=== PATIENT | female | born 1980 | race Caucasian/White ===

== ENCOUNTER 2017-01-26 16:45 | Inpatient (IN) | payer OTHER ==
[2017-01-26] MEDS ORDERED: DEXTROSE 5%-LACTATED RINGERS 1,000 ML IV ONE (18:00)
[2017-01-26] MEDS ORDERED: CITRIC ACID/SODIUM CITRATE 30 ML UNIT-DOSE CUP PO ONE ×2 (19:39)
[2017-01-26] MEDS ORDERED: ELECTROLYTE-148 SOLN 1,000 ML IV SCH (19:45)
--- NOTE | 2017-01-26 19:46 | HP ---
Past Medical History - Admission Chief Complaint: Previous in labor History of Present Illness: 36 yo @ 40 weeks gestation, with one previous is Pre op for repeat . History Source: Patient Limitations to Obtaining History: No Limitations - Past Medical History ...: 4 ...Para: 3 ...Term: 3 ...: 0 ...Spon : 0 ...Induced : 0 ...EDC by Sono: 01/23/17 - Past Surgical History Past Surgical History: Yes: Hx Myomectomy: No Hx Transabdominal Cerclage: No - Smoking History Have you smoked in the past 12 months: No - Alcohol/Substance Use Hx Alcohol Use: No History of Substance Use: reports: None - Social History Usual Living Arrangement: Yes: With Spouse History of Recent Travel: No Home Medications - Allergies Allergies/Adverse Reactions: Allergies Allergy/AdvReac Type Severity Reaction Status Date / Time No Known Allergies Allergy Verified 01/26/17 17:44 - Home Medications Home Medications: Ambulatory Orders Vit/Iron Fumarate/FA [ Tablet] 1 tablet PO DAILY 11/03/16 Family Disease History - Family Disease History Family History: Unremarkable Review of Systems - Review of Systems Constitutional: reports: No Symptoms Eyes: reports: No Symptoms HENT: reports: No Symptoms Neck: reports: No Symptoms Cardiovascular: reports: No Symptoms Respiratory: reports: No Symptoms Gastrointestinal: reports: No Symptoms Genitourinary: reports: Pain Breasts: reports: No Symptoms Reported Musculoskeletal: reports: No Symptoms Integumentary: reports: No Symptoms Neurological: reports: No Symptoms Endocrine: reports: No Symptoms Hematology/Lymphatic: reports: No Symptoms Psychiatric: reports: No Symptoms Pain Intensity: 3 Physical Exam - Maternity Vital Signs: Vital Signs Temperature 97.9 F 01/26/17 17:15 Pulse Rate 88 01/26/17 17:15 Respiratory Rate 18 01/26/17 17:15 Blood Pressure 112/70 01/26/17 17:15 O2 Sat by Pulse Oximetry (%) Constitutional: Yes: Well Nourished Eyes: Yes: Conjunctiva Clear Neck: Yes: Supple, Trachea Midline Cardiovascular: Yes: Regular Rate and Rhythm Lungs: Clear to auscultation Breast(s): Yes: WNL - Abdominal Exam/OB Number of Fetuses: Single Presentation: Vertex Contractions: Yes Regularity: Irregular - Vaginal Exam/OB Vaginal Bleediing: No Dilatation (cm): 1 Effacement (%): 50 Amniotic Membrane Status: Intact Station: -3 - Physical Exam Musculoskeletal: Yes: WNL Extremities: Yes: WNL ...Motor Strength: WNL Psychiatric: Yes: Alert, Oriented Problem List - Problems (1) Previous delivery affecting , antepartum Code(s): O34.219 - MATERNAL CARE FOR UNSP TYPE SCAR FROM PREVIOUS DEL Assessment/Plan Previous Pre op for repeat Consent signed Anesthesia to see patient
[2017-01-26] MEDS ORDERED: TUBERCULIN PPD 5 TU/0.1ML SYRINGE (IN PATIENT USE ONLY) ID ONE ×2 (19:51→20:15)
[2017-01-26 20:18] LABS: BASOPHIL 0.2 % (0-2.0); EOSINOPHIL 0.9 % (0-4.5); MCH 29.9 pg (25.7-33.7); MCHC 34.2 g/dl (32.0-36.0); MEAN CELL VOLUME 87.6 fl (80-96); MEAN PLT VOLUME 9.2 fl (7.5-11.1); NEUTROPHILS 59.9 % (42.8-82.8); PLATELET COUNT 183 K/MM3 (134-434); WHITE BLOOD COUNT 5.5 K/mm3 (4.0-10.0)
[2017-01-26 20:36] VITALS: BMI 32.1
[2017-01-26 20:49] LABS: CALCIUM 8.2 mg/dL (8.5-10.1); COCKROFT - GAULT 189.346; CREATININE 0.5 mg/dL (0.55-1.02)
[2017-01-26 22:27] LABS: HIV 1 & 2 AB NEGATIVE; HIV 1 AGp24 NEGATIVE
[2017-01-26] MEDS ORDERED: IBUPROFEN 800 MG/8 ML IJ IVPB PRN (22:50)
[2017-01-26] MEDS ORDERED: ONDANSETRON 4 MG/2 ML VIAL IVPUSH PRN (22:51)
[2017-01-26] MEDS ORDERED: METHYLERGONOVINE MALEATE 0.2 MG/1 ML AMP IM PRN (22:51)
--- NOTE | 2017-01-26 22:54 | OP ---
Operative Note - Note: Operative Date: 01/26/17 Pre-Operative Diagnosis: Previous in labor Operation: Repeat Findings: Baby girl in LOT position Surgeon: Shameka Schwarz Senior Principal Process Engineer: Lashanda Gutierres Anesthesia: Spinal Specimens Removed: Placenta Estimated Blood Loss (mls): 600
[2017-01-26] MEDS ORDERED: D5W-LR W/ 20 UNITS OXYTOCIN 1,000 ML IV SCH (23:00)
[2017-01-27 06:54] LABS: BASOPHIL 0.3 % (0-2.0); EOSINOPHIL 0.6 % (0-4.5); MCH 30.1 pg (25.7-33.7); MEAN CELL VOLUME 88.5 fl (80-96); MEAN PLT VOLUME 8.6 fl (7.5-11.1); NEUTROPHILS 69.2 % (42.8-82.8); PLATELET COUNT 151 K/MM3 (134-434); RDW 15.1 % (11.6-15.6); WHITE BLOOD COUNT 8.6 K/mm3 (4.0-10.0)
[2017-01-27 07:04] LABS: INR 1.03 (0.82-1.09); PROTHROMBIN TIME (PATIENT) 11.3 SEC (9.98-11.88)
--- NOTE | 2017-01-27 07:54 | PN ---
Post Progress Note - Subjective Subjective: 36 yo Para 4, status post repeat , seen and evaluated. Doing well. Type of Delivery: Repeat C/S Vital Signs: Vital Signs Temperature 97.2 F L 01/27/17 06:18 Pulse Rate 75 01/27/17 06:18 Respiratory Rate 18 01/27/17 06:18 Blood Pressure 113/62 01/27/17 06:18 O2 Sat by Pulse Oximetry (%) 100 01/27/17 00:15 Breast Exam: Yes: Soft Uterus: Yes: Fundus Firm Incision: Yes: Dressing dry and intact Abdomen/GI: Yes: Abdomen soft Lochia, amount: Small Extremities: Yes: Calves non-tender Perineum: Yes: Intact Activity: Other (She's lying in bed) - Labs Labs: CBC WBC 8.6 K/mm3 (4.0-10.0) D 01/27/17 06:25 RBC 3.72 M/mm3 (3.60-5.2) 01/27/17 06:25 Hgb 11.2 GM/dL (10.7-15.3) 01/27/17 06:25 Hct 33.0 % (32.4-45.2) 01/27/17 06:25 MCV 88.5 fl (80-96) 01/27/17 06:25 MCHC 34.0 g/dl (32.0-36.0) 01/27/17 06:25 RDW 15.1 % (11.6-15.6) 01/27/17 06:25 Plt Count 151 K/MM3 (134-434) 01/27/17 06:25 MPV 8.6 fl (7.5-11.1) 01/27/17 06:25 Neutrophils % 69.2 % (42.8-82.8) 01/27/17 06:25 Lymphocytes % 23.2 % (8-40) D 01/27/17 06:25 Monocytes % 6.7 % (3.8-10.2) 01/27/17 06:25 Eosinophils % 0.6 % (0-4.5) 01/27/17 06:25 Basophils % 0.3 % (0-2.0) 01/27/17 06:25 Problem List - Problems (1) Previous delivery affecting , antepartum Code(s): O34.219 - MATERNAL CARE FOR UNSP TYPE SCAR FROM PREVIOUS DEL Assessment/Plan Status post repeat Ambulation Analgesia PRN pain Continue routine Post op care
[2017-01-27] MEDS: PRENATAL VITAMINS W/ FOLIC ACID TABLET (FP) PO SCH (10:38)
[2017-01-27] MEDS: FERROUS SO4 325 MG TABLET (FP) PO SCH ×2 (10:38→21:06)
[2017-01-27] MEDS: IBUPROFEN 600 MG TABLET (FP) PO PRN ×2 (13:04→20:25)
[2017-01-27] MEDS: SIMETHICONE 80 MG TAB.CHEW (FP) PO PRN ×2 (13:04→20:25)
[2017-01-27] MEDS: ACETAMINOPHEN 325 MG TABLET (FP) PO PRN (20:24)
[2017-01-27] MEDS ORDERED: BISACODYL 10 MG SUPP.RECT RC PRN (22:51)
[2017-01-28] MEDS: ACETAMINOPHEN 325 MG TABLET (FP) PO PRN ×3 (05:50→20:45)
[2017-01-28] MEDS: IBUPROFEN 600 MG TABLET (FP) PO PRN ×3 (05:50→20:45)
[2017-01-28] MEDS: SIMETHICONE 80 MG TAB.CHEW (FP) PO PRN ×4 (05:50→20:45)
--- NOTE | 2017-01-28 07:23 | PN ---
Progress Note (SOAP) - Subjective Chief Complaint: Pt sp CS doing well - Current Medications Current Medications: Active Medications Acetaminophen (Tylenol -) 650 mg PO Q4H PRN PRN Reason: FEVER OR PAIN Last Admin: 01/28/17 05:50 Dose: 650 mg Bisacodyl (Dulcolax Suppository -) 10 mg RC PRN PRN PRN Reason: CONSTIPATION Diphtheria/Tetanus/Acell Pertussis (Boostrix -) 0.5 ml IM .ONCE ONE Stop: 01/28/17 10:01 Ferrous Sulfate (Feosol -) 325 mg PO BID SHIN Last Admin: 01/27/17 21:06 Dose: 325 mg Ibuprofen (Motrin -) 600 mg PO Q4H PRN PRN Reason: PAIN Last Admin: 01/28/17 05:50 Dose: 600 mg Methylergonovine Maleate (Methergine Injection -) 0.2 mg IM Q4H PRN PRN Reason: Excessive Bleeding (L&D) Multivit/Folic Acid/Iron ( Vitamins (Sjr) -) 1 tab PO DAILY [facility] Last Admin: 01/27/17 10:38 Dose: Not Given Simethicone (Mylicon -) 80 mg PO Q4H PRN PRN Reason: GAS Last Admin: 01/28/17 05:50 Dose: 80 mg - Objective Vital Signs: Vital Signs Temperature 97.6 F 01/27/17 22:00 Pulse Rate 91 H 01/27/17 22:00 Respiratory Rate 18 01/27/17 22:00 Blood Pressure 105/63 01/27/17 22:00 O2 Sat by Pulse Oximetry (%) 100 01/27/17 00:15 Constitutional: Yes: Well Nourished, No Distress Gastrointestinal: Yes: WNL, Normal Bowel Sounds, Soft ....Post : Yes: Uterus firm, Uterus non-tender Breast(s): Yes: WNL Musculoskeletal: Yes: WNL Extremities: Yes: WNL Edema: No Wound/Incision: Yes: Clean/Dry, Well Approximated Labs Lab Results: CBC, BMP 01/27/17 06:25 01/26/17 19:45 Problem List - Problems (1) Status post repeat low transverse section Code(s): Z98.891 - HISTORY OF UTERINE SCAR FROM PREVIOUS SURGERY Assessment/Plan POD 2 SP CS Plan Continue present management
[2017-01-28] MEDS ORDERED: OXYCODONE/APAP 5/325MG COMBO TABLET PO PRN (07:27)
[2017-01-28] MEDS: PRENATAL VITAMINS W/ FOLIC ACID TABLET (FP) PO SCH (10:07)
[2017-01-28] MEDS: FERROUS SO4 325 MG TABLET (FP) PO SCH ×2 (10:07→21:03)
[2017-01-28] MEDS: oxyCODONE HCL 5 MG TABLET PO PRN ×2 (10:09→20:44)
[2017-01-28] MEDS ORDERED: DIPHTH,PERTUSS(ACELL),TET 0.5 ML DISP.SYRIN IM ONE (11:00)
--- NOTE | 2017-01-28 13:20 | PN ---
Progress Note, Physician Chief Complaint: s/p c section under spinal anesthesia History of Present Illness: duramorph for post op pain control, post op day one - Current Medication List Current Medications: Active Medications Acetaminophen (Tylenol -) 650 mg PO Q4H PRN PRN Reason: FEVER OR PAIN Last Admin: 01/28/17 05:50 Dose: 650 mg Acetaminophen (Tylenol -) 325 mg PO Q4H PRN PRN Reason: PAIN 1-5 Stop: 01/31/17 10:01 Last Admin: 01/28/17 10:10 Dose: 325 mg Bisacodyl (Dulcolax Suppository -) 10 mg RC PRN PRN PRN Reason: CONSTIPATION Ferrous Sulfate (Feosol -) 325 mg PO BID [facility] Last Admin: 01/28/17 10:07 Dose: 325 mg Ibuprofen (Motrin -) 600 mg PO Q4H PRN PRN Reason: PAIN Last Admin: 01/28/17 10:08 Dose: 600 mg Methylergonovine Maleate (Methergine Injection -) 0.2 mg IM Q4H PRN PRN Reason: Excessive Bleeding (L&D) Oxycodone HCl (Roxicodone -) 5 mg PO Q4H PRN PRN Reason: PAIN 1-5 Last Admin: 01/28/17 10:09 Dose: 5 mg Multivit/Folic Acid/Iron ( Vitamins (Sjr) -) 1 tab PO DAILY [facility] Last Admin: 01/28/17 10:07 Dose: 1 tab Simethicone (Mylicon -) 80 mg PO Q4H PRN PRN Reason: GAS Last Admin: 01/28/17 10:07 Dose: 80 mg - Objective Vital Signs: Vital Signs Temperature 98.2 F 01/28/17 08:15 Pulse Rate 82 01/28/17 08:15 Respiratory Rate 18 01/28/17 08:15 Blood Pressure 99/63 01/28/17 08:15 O2 Sat by Pulse Oximetry (%) 100 01/27/17 00:15 Constitutional: Yes: Well Nourished Cardiovascular: Yes: WNL Respiratory: Yes: WNL Gastrointestinal: Yes: WNL Labs: CBC, BMP 01/27/17 06:25 01/26/17 19:45 INR, PTT INR 1.03 (0.82-1.09) 01/27/17 06:25 Assessment/Plan no anesthetic complications, pain under control, dept of anesthesia will sign off care at this time.
[2017-01-28] MEDS ORDERED: ASPIRIN 81 MG CHEWABLE TABLETS PO ONE (15:47)
--- NOTE | 2017-01-28 16:02 | HOSP ---
Subjective - Review of Symptoms General: No: Chills, Night Sweats HEENT: No: Head Aches, Visual Changes Pulmonary: No: Dyspnea, Cough Cardiovascular: Yes: Chest Pain Gastrointestinal: No: Nausea, Vomiting Genitourinary: No: Dysuria Musculoskeletal: Yes: No Symptoms Physical Examination Vital Signs: Vital Signs Temperature 98.2 F 01/28/17 08:15 Pulse Rate 82 01/28/17 08:15 Respiratory Rate 18 01/28/17 08:15 Blood Pressure 99/63 01/28/17 08:15 O2 Sat by Pulse Oximetry (%) 100 01/27/17 00:15 Eyes: Yes: WNL, Conjunctiva Clear, EOM Intact HENT: Yes: Normocephalic Cardiovascular: Yes: Regular Rate and Rhythm. No: Gallop, Murmur Respiratory: Yes: Regular, CTA Bilaterally. No: Accessory Muscle Use Extremities: Yes: WNL. No: Calf Tenderness, Erythema Edema: No Labs: CBC, BMP 01/27/17 06:25 01/26/17 19:45 Hospitalist Encounter Assessment: A: This is a 36 yo woman who had delivery 01/26 who has developed sudden onset chest pain while at rest. The pain is midsternal with radiation between her breasts and over her left shoulder into her left upper back. The patient denies associated symptoms including nausea, vomiting, SOB, jaw pain or dizziness. Well's criteria score of 1.5 for recent surgery. EKG sinus rhythm without ectopy. Vital signs as documented. Denies coughing. HEART pathway for early discharge- 0. Likely post-op PNA vs. ACS vs. GERD vs. PE vs. breast milk engorgement vs. costochondritis P: 1. Chest pain- PE less likely as Wells criteria of 1.5 (3% chance of PE). - d-dimer - troponin x2 - EKG - ASA - CXR Primary Physician Notified: Shameka Schwarz Time PMD Notified: 16:06 Recommendations/Interventions: chest pain w/u
[2017-01-29] MEDS: ACETAMINOPHEN 325 MG TABLET (FP) PO PRN ×3 (06:55→22:18)
[2017-01-29] MEDS: SIMETHICONE 80 MG TAB.CHEW (FP) PO PRN ×2 (06:55→15:21)
[2017-01-29] MEDS: oxyCODONE HCL 5 MG TABLET PO PRN (06:56)
[2017-01-29] MEDS: IBUPROFEN 600 MG TABLET (FP) PO PRN ×3 (06:56→22:19)
[2017-01-29 07:20] LABS: BASOPHIL 0.4 % (0-2.0); EOSINOPHIL 3.7 % (0-4.5); MCHC 33.8 g/dl (32.0-36.0); MEAN CELL VOLUME 88.7 fl (80-96); MEAN PLT VOLUME 8.3 fl (7.5-11.1); NEUTROPHILS 58.4 % (42.8-82.8); PLATELET COUNT 188 K/MM3 (134-434); RDW 15.3 % (11.6-15.6); WHITE BLOOD COUNT 7.8 K/mm3 (4.0-10.0)
--- NOTE | 2017-01-29 08:15 | PN ---
Post Progress Note - Subjective Subjective: Pt seen/evaluated. Spoke with patient's nurse who spoke with over the phone (pt non georgian speaking). Pt feeling well. Tolerating diet, ambulating , voiding. Had some chest pain yesterday, s/p hospitalist consultation. CXR normal D Dimer elevated but is likely 2/2 /post , Troponin negative. Pt feeling better this a.m. +flatus. +void. No other complaints. Type of Delivery: Repeat C/S Vital Signs: Vital Signs Temperature 98.5 F 01/28/17 22:00 Pulse Rate 81 01/28/17 22:00 Respiratory Rate 18 01/28/17 22:00 Blood Pressure 124/74 01/28/17 22:00 O2 Sat by Pulse Oximetry (%) 98 01/28/17 15:15 Uterus: Yes: Fundus Firm, Fundus below umbilicus Incision: Yes: Sutures intact Abdomen/GI: Yes: Abdomen soft, Passing flatus (no BM yet), Tolerating PO. No: Tender Lochia: Yes: Rubra Lochia, amount: Small Extremities: Yes: Calves non-tender Perineum: Yes: Intact - Labs Labs: CBC WBC 7.8 K/mm3 (4.0-10.0) 01/29/17 06:30 RBC 3.64 M/mm3 (3.60-5.2) 01/29/17 06:30 Hgb 10.9 GM/dL (10.7-15.3) 01/29/17 06:30 Hct 32.3 % (32.4-45.2) L 01/29/17 06:30 MCV 88.7 fl (80-96) 01/29/17 06:30 MCHC 33.8 g/dl (32.0-36.0) 01/29/17 06:30 RDW 15.3 % (11.6-15.6) 01/29/17 06:30 Plt Count 188 K/MM3 (134-434) D 01/29/17 06:30 MPV 8.3 fl (7.5-11.1) 01/29/17 06:30 Neutrophils % 58.4 % (42.8-82.8) 01/29/17 06:30 Lymphocytes % 29.0 % (8-40) D 01/29/17 06:30 Monocytes % 8.5 % (3.8-10.2) 01/29/17 06:30 Eosinophils % 3.7 % (0-4.5) D 01/29/17 06:30 Basophils % 0.4 % (0-2.0) 01/29/17 06:30 Problem List - Problems (1) Previous delivery affecting , antepartum Code(s): O34.219 - MATERNAL CARE FOR UNSP TYPE SCAR FROM PREVIOUS DEL (2) Status post repeat low transverse section Code(s): Z98.891 - HISTORY OF UTERINE SCAR FROM PREVIOUS SURGERY (3) Chest pain Code(s): R07.9 - CHEST PAIN, UNSPECIFIED Assessment/Plan 36 y/o POD#3 s/p delivery - AFVSS - regular diet, PO pain meds, encourage ambulation - chest pain - resolved, but appreciate hospitalist input. Workup so far negative. Will await their clearance for possible discharge - routine care otherwise
[2017-01-29] MEDS: PRENATAL VITAMINS W/ FOLIC ACID TABLET (FP) PO SCH (10:10)
[2017-01-29] MEDS: FERROUS SO4 325 MG TABLET (FP) PO SCH ×2 (10:10→22:18)
--- NOTE | 2017-01-29 10:32 | EKG ---
Test Reason : Blood Pressure : / mmHG Vent. Rate : 095 BPM Atrial Rate : 095 BPM P-R Int : 128 ms QRS Dur : 078 ms QT Int : 344 ms P-R-T Axes : 052 015 038 degrees QTc Int : 432 ms NORMAL SINUS RHYTHM NORMAL ECG Confirmed by TANVIR CARDENAS MD ([id number]) on 01/29/2017 10:32:47 AM Referred By: Pancho MADERA Confirmed By:TANVIR CARDENAS MD
--- NOTE | 2017-01-29 14:29 | HOSP ---
Subjective - Review of Symptoms Events since last encounter: SUBJECTIVE: Patient seen and examined. Complains of very mild pain between her breasts. OBJECTIVE Vital Signs Temperature 98.5 F 01/29/17 10:00 Pulse Rate 81 01/29/17 10:00 Respiratory Rate 18 01/29/17 10:00 Blood Pressure 116/76 01/29/17 10:00 O2 Sat by Pulse Oximetry (%) 98 01/28/17 15:15 GENERAL/NEURO: A&Ox3 CV: S1, S2, rrr LUNGS: CTA; breasts engorged; no erythema, no exudative discharge ABD: soft, not distended, not tender EXT: 2+ pulses, warm, well-perfused Laboratory Results - last 24 hr 01/28/17 01/28/17 01/28/17 16:10 16:10 19:00 WBC RBC Hgb Hct MCV MCHC RDW Plt Count MPV Neutrophils % Lymphocytes % Monocytes % Eosinophils % Basophils % D-Dimer 685 H Troponin I < 0.02 < 0.02 01/29/17 06:30 WBC 7.8 RBC 3.64 Hgb 10.9 Hct 32.3 L MCV 88.7 MCHC 33.8 RDW 15.3 Plt Count 188 D MPV 8.3 Neutrophils % 58.4 Lymphocytes % 29.0 D Monocytes % 8.5 Eosinophils % 3.7 D Basophils % 0.4 D-Dimer Troponin I ASSESSMENT & PLAN 36 year-old woman s/p on 01/26 developed chest pain yesterday. Pain is reported as minimal today. Chest pain --ACS ruled out, serial troponins negative; ECG not suggestive of acute ischemic event; CXR today unremarkable --Wells score 1.5 based upon recent surgery; d-dimer mildly elevated; pulmonary consult requested to determine whether CTA is indicated Dispo: we will continue to follow this patient with you. Thank you for this consultative opportunity. Physical Examination Vital Signs: Vital Signs Temperature 98.5 F 01/29/17 10:00 Pulse Rate 81 01/29/17 10:00 Respiratory Rate 18 01/29/17 10:00 Blood Pressure 116/76 01/29/17 10:00 O2 Sat by Pulse Oximetry (%) 98 01/28/17 15:15 Labs: CBC, BMP 01/29/17 06:30 01/26/17 19:45
--- NOTE | 2017-01-29 16:28 | PN ---
Progress Note (short form) - Note Progress Note: CONSULTATION DICTATED 01/29/17 IMP CHEST PAIN SYNDROME ?ETIOLOGY DOUBT PE,PT HAS HAD SIMILIAR SYMPTOMS GREATER THAN ONE YEAR ELEVATED D-DIMER NON-SPECIFIC PT S/P SURGERY, S/P HYPERCHOLESTEROLEMIA PLAN INCENTIVE SPIROMETRY DUPLEX LOWER EXTREMITIES OUTPATIENT W/U PER PMD FOR CHRONIC CHEST PAIN DR JACKSON Problem List - Problems (1) Chest pain Code(s): R07.9 - CHEST PAIN, UNSPECIFIED (2) Previous delivery affecting , antepartum Code(s): O34.219 - MATERNAL CARE FOR UNSP TYPE SCAR FROM PREVIOUS DEL (3) Hypercholesteremia Code(s): E78.00 - PURE HYPERCHOLESTEROLEMIA, UNSPECIFIED
--- NOTE | 2017-01-30 07:30 | HOSP ---
Subjective - Review of Symptoms Events since last encounter: Patient was seen and evaluated by Dr. Herrera pulmonary. Duplex of lower extremities was ordered. Results negative for DVT. Patient was discharged by Dr. Schwarz on 01/29/17. Physical Examination Vital Signs: Vital Signs Temperature 97.5 F L 01/30/17 05:59 Pulse Rate 76 01/30/17 05:59 Respiratory Rate 18 01/30/17 05:59 Blood Pressure 121/81 01/30/17 05:59 O2 Sat by Pulse Oximetry (%) 98 01/28/17 15:15 Labs: CBC, BMP 01/29/17 06:30 01/26/17 19:45
--- NOTE | 2017-01-30 08:02 | CONS ---
DATE OF CONSULTATION: 01/29/2017 PULMONARY CONSULTATION REFERRING PHYSICIAN: HISTORY OF PRESENT ILLNESS: The patient is a 36-year-old [facility] female with past medical history significant for hypercholesterolemia. She is a nonsmoker. She was admitted to [facility] on January 26 for repeat . The patient underwent a on January 26, without complications. Apparently yesterday the patient started developing some shortness of breath and some chest pressure, which resolved spontaneously. She states at the time she was also noted to have breast engorgement, and the pain was relieved by using a breast pump. The patient states that she has not had any chest pain since yesterday. She denies any shortness of breath, denies any cough, denies any history of PE or DVT. She states that she has had chest pain for the past year or so, initially in [facility], which she gets occasionally when walking and says it is the exact pain that she exhibits now. She went to a doctor in [facility], who told her it is from her cholesterol. She denies any history or family history of COPD or asthma. There is no past or family history of PE or DVT. There is no history of occupational exposures. PAST MEDICAL HISTORY: As noted. Hypercholesterolemia. CURRENT MEDICATIONS: Include Tylenol, Feosol, oxycodone. REVIEW OF SYSTEMS: No orthopnea, no PND, no cough, no shortness of breath, no chest pain at this time. Positive mild incisional pain. No lower extremity edema. PHYSICAL EXAMINATION: General: The patient is a well-developed, well-nourished female, awake, alert, in no acute distress. Vitals: She is afebrile. Blood pressure 116/76, respiratory rate 18. O2 saturation is 98% on room air. HEENT: Normocephalic, atraumatic. Neck: Supple. Heart: Regular S1, S2. Chest: Clear. Abdomen: Soft. Bowel sounds are present. There is incisional tenderness. Extremities: No cyanosis or edema. DIAGNOSTIC STUDIES: WBC 7.8; hemoglobin 10.9; hematocrit 32.3; platelet count 188,000. D-dimer is 685, which is nonspecific in view of the patient's recent as well as her surgery, postoperative day 1. Chest x-ray shows no infiltrates and no effusions. IMPRESSION: 1. Chest pain, resolved. Doubt pulmonary embolism. The patient has had this pain for greater than 1 year. D-dimer nonspecific. 2. History of hypercholesterolemia. PLAN: Suggest incentive spirometer. Would get duplex of the lower extremities. Analgesics. CAMI JACKSON M.D. KATHERYN/[id number]
--- NOTE | 2017-01-30 09:10 | DS ---
Physical Exam-FISCAL SPECIALIST Vital Signs: Vital Signs Temperature 97.5 F L 01/30/17 05:59 Pulse Rate 76 01/30/17 05:59 Respiratory Rate 18 01/30/17 05:59 Blood Pressure 121/81 01/30/17 05:59 O2 Sat by Pulse Oximetry (%) 98 01/28/17 15:15 Labs: CBC, BMP 01/29/17 06:30 01/26/17 19:45 Delivery - Delivery Section: Repeat, Low Flap Transverse Type of Anesthesia: Spinal Episiotomy/Laceration: None EBL (cc): 600 Delivery, Single - Stages of Labor Date of Delivery: 01/27/17 Time of Delivery: 23:14 Time Placenta Delivered: 23:15 Placenta: Yes: Manual Removal - Condition of Infant Customer Service Specialist/Air Reduction Equipment Operator Present: No Infant Gender: Female Weight: 6 lb 12 oz Position: Left, OT Total Hours ROM (Hrs/Mins): 1 minute - 1 Minute Total Score: 9 5 Minutes Total Score: 9 - Jesse Feeding Plan Initial Plan: Elected not to breastfeed exclusively throughout hospitalization Discharge Summary Current Active Problems Chest pain (Acute) Hypercholesteremia (Acute) Previous delivery affecting , antepartum (Acute) Status post repeat low transverse section (Acute) Procedures: Principal: Repeat low transverse delivery. Hospital Course: Patient admitted on 01/26/2017 in labor with a history of a prior cesearean delivery. The patient underwent an uncomplicated repeat delivery on (see operative report for full details of procedure). The patient had a post course complicated only by chest pain for which she had a full workup per the medical and pulmonary team. Workup was negative. The patient was deemed stable for discharge and was discharged home on 01/30/2017 in stable condition. Condition: Good - Instructions Diet, Activity, Other Instructions: Regular diet Wound care No driving, no lifting x 4 weeks Referrals: Shameka Schwarz MD [Staff Physician] - Disposition: HOME - Home Medications Comprehensive Discharge Medication List: Ambulatory Orders Vit/Iron Fumarate/FA [ Tablet] 1 tablet PO DAILY 11/03/16
[2017-01-30] MEDS: FERROUS SO4 325 MG TABLET (FP) PO SCH (10:26)
[2017-01-30] MEDS: PRENATAL VITAMINS W/ FOLIC ACID TABLET (FP) PO SCH (10:27)
[2017-01-30] MEDS: ACETAMINOPHEN 325 MG TABLET (FP) PO PRN (10:30)
[2017-01-30] MEDS: IBUPROFEN 600 MG TABLET (FP) PO PRN (10:31)
[2017-01-30 11:22] VITALS: BP 126/86; PULSE 91; TEMP 97.6
--- NOTE | 2017-01-30 14:50 | PATH ---
Surgical Pathology Report Patient Name: MITESH SHELBY Med. Rec. 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 Specimen(s) Received PLACENTA Clinical History , x2, x1 (2008) High cholesterol-no meds Final Diagnosis PLACENTA, DELIVERY: FOCALLY DISRUPTED THIRD TRIMESTER PLACENTA WITH THREE VESSEL UMBILICAL CORD AND UNREMARKABLE PLACENTAL MEMBRANES. Electronically Signed Ezequiel Boo M.D. Gross Description The specimen is received fresh labeled placenta and is a 499 gram, 16.0 x 15.5 x 2.9 cm. placenta with attached membranes and umbilical cord. The attached membranes are koenig, translucent with focal opacities and insert marginally. The umbilical cord measures 49 cm. in length and averages 1 cm. in diameter. The cord inserts eccentrically, 3.5 cm. to the nearest margin. No true knots or strictures are identified. Cut surface of the umbilical cord reveals 3 vessels. The surface is clark-blue with minimal fibrin deposition and appropriate caliber vessels. The maternal surface is red-brown with focal defects. Sectioning reveals red-brown, spongy parenchyma. No lesions are identified. Manager Regional Sales sections are submitted in three cassettes as follows: 1- membrane rolls and umbilical cord; 2-3- full thickness sections of placenta. 01/29/201701/29/2017
== END 2017-01-30 16:50 | disposition home or self-care (01) | DRG 540 ==
LOC: JDEL 16:45 → JLDR 19:25 → J3W 01-27
PROVIDERS: ADMIT Obstetrics & Gynecology; ATTEND Obstetrics & Gynecology
PROC: 10D00Z1 Extraction of Products of Conception, Low, Open Approach (ICD-10-PCS; principal; 2017-01-26)
DX: O34.211 Maternal care for low transverse scar from previous cesarean delivery (principal); O90.89 Other complications of the puerperium, not elsewhere classified; R07.89 Other chest pain; E78.00 Pure hypercholesterolemia, unspecified; Z3A.40 40 weeks gestation of pregnancy; Z37.0 Single live birth
CPT/HCPCS: 36415; 71010-TC; 71020-TC; 80048; 84484; 85025; 85379; 85610; 86593; 86850; 86900; 86901; 87389; 88307-TC; 90715; 93005; 93010; 93970-TC

== ENCOUNTER 2021-03-09 18:46 | Emergency (ER) | payer OTHER ==
[2021-03-09 18:57] VITALS: TEMP 97.7; BMI 28.1
[2021-03-09 20:24] LABS: BASO % 0.4 % (0-2.0); EOS % 0.9 % (0-4.5); HEMATOCRIT 39.1 % (32.4-45.2); HEMOGLOBIN 13.1 GM/dL (10.7-15.3); LYMPH % 37.1 % (8-40); MCH 27.7 pg (25.7-33.7); MCHC 33.4 g/dl (32.0-36.0); MEAN CELL VOLUME 82.9 fl (80-96); MEAN PLT VOLUME 8.1 fl (7.5-11.1); MONO % 7.1 % (3.8-10.2); NEUT % 54.5 % (42.8-82.8); PLATELET COUNT 294 10^3/uL (134-434); RBC 4.72 M/mm3 (3.60-5.2); RDW 14.4 % (11.6-15.6)
[2021-03-09] MEDS ORDERED: ACETAMINOPHEN 1000 MG/100 ML VIAL (NON FORMULARY) IVPB ONE (20:24)
[2021-03-09] MEDS ORDERED: SODIUM CHLORIDE 0.9% 500 ML INFUS.BAG IV ONE (20:24)
[2021-03-09] MEDS ORDERED: MECLIZINE HCL 25 MG TABLET (FP) PO ONE (20:24)
[2021-03-09] MEDS ORDERED: MECLIZINE HCL 25 MG TABLET (FP) ONE (20:36)
[2021-03-09] MEDS ORDERED: ACETAMINOPHEN INJECTION 100 ML IVPB ONE (20:36)
[2021-03-09 20:47] LABS: CHLORIDE 111 mmol/L (98-107); SODIUM 141 mmol/L (136-145)
[2021-03-09 20:49] LABS: CALCIUM 9.2 mg/dL (8.5-10.1)
[2021-03-09 20:50] LABS: ALBUMIN 3.8 g/dl (3.4-5.0); ANION GAP 7 MMOL/L (8-16); BLOOD UREA NITROGEN 9.4 mg/dL (7-18); CO2 23 mmol/L (21-32); GLUCOSE,RANDOM 92 mg/dL (74-106)
[2021-03-09 20:53] LABS: CREATININE 0.6 mg/dL (0.55-1.3); SGOT/AST 16 U/L (15-37); SGPT/ALT 15 U/L (13-61)
[2021-03-09 20:54] LABS: BILIRUBIN,TOTAL 0.4 mg/dL (0.2-1)
[2021-03-09 20:55] LABS: TOT PROT 7.5 g/dl (6.4-8.2)
[2021-03-09 20:56] LABS: ALK PHOS 56 U/L (45-117)
[2021-03-09] MEDS ORDERED: METOCLOPRAMIDE HCL INJECTION 10 MG/2 ML VIAL IVPUSH ONE (22:26)
[2021-03-09] MEDS ORDERED: METOCLOPRAMIDE HCL INJECTION 10 MG/2 ML VIAL ONE (22:33)
[2021-03-09 22:34] LABS: EPI CELLS 10 /uL (0-25.1); HYALINE CASTS 1 /uL (0-3.1); URINE APPEARANCE CLEAR; URINE BACTERIA 563 /uL (0-1359); URINE BILIRUBIN NEGATIVE (NEGATIVE); URINE COLOR YELLOW; URINE GLUCOSE (UA) NEGATIVE (NEGATIVE); URINE KETONE 1+ (NEGATIVE); URINE LEUK ESTERASE 2+ (NEGATIVE); URINE NITRITE NEGATIVE (NEGATIVE); URINE PROTEIN NEGATIVE (NEGATIVE); URINE RBC 20 /uL (0-23.9); URINE WBC 149 /uL (0-25.8)
[2021-03-09] MEDS ORDERED: CEPHALEXIN 250 MG/5 ML ORAL SUSPENSION PO ONE (23:53)
[2021-03-09] MEDS ORDERED: CEPHALEXIN MONOHYDRATE 500 MG CAPSULE (UD) ONE (23:58)
[2021-03-10 00:23] VITALS: BP 110/85; PULSE 84
== END 2021-03-10 00:20 | disposition home or self-care (01) ==
LOC: JER 18:46
PROC: 3E0333Z Introduction of Anti-inflammatory into Peripheral Vein, Percutaneous Approach (ICD-10-PCS; principal; 2021-03-09)
PROC: 3E033GC Introduction of Other Therapeutic Substance into Peripheral Vein, Percutaneous Approach (ICD-10-PCS; 2021-03-09)
DX: N39.0 Urinary tract infection, site not specified (principal); N30.00 Acute cystitis without hematuria
CPT/HCPCS: 36415; 70450-TC; 71045-TC-FY; 80053; 81003; 82550; 84484; 84702; 85025; 93005; 93010; 99285-25; J0131

== ENCOUNTER 2021-08-21 23:52 | Observation (INO) | payer OTHER ==
[2021-08-22] MEDS ORDERED: MECLIZINE HCL 25 MG TABLET (FP) PO ONE (00:37)
[2021-08-22] MEDS ORDERED: SODIUM CHLORIDE 0.9% 500 ML INFUS.BAG IV ONE (00:37)
[2021-08-22] MEDS ORDERED: METOCLOPRAMIDE HCL INJECTION 10 MG/2 ML VIAL IVPB ONE (00:37)
[2021-08-22] MEDS ORDERED: METOCLOPRAMIDE HCL INJECTION 10 MG/2 ML VIAL ONE (00:59)
[2021-08-22] MEDS ORDERED: MECLIZINE HCL 25 MG TABLET (FP) ONE (01:00)
[2021-08-22] MEDS ORDERED: CARBAMIDE PEROXIDE 6.5% OTIC 15 ML BOTTLE AU ONE (01:09)
[2021-08-22 02:05] LABS: BASO % 0.3 % (0-2.0); EOS % 1.6 % (0-4.5); HEMATOCRIT 40.3 % (32.4-45.2); HEMOGLOBIN 13.6 GM/dL (10.7-15.3); LYMPH % 51.1 % (8-40); MCH 27.9 pg (25.7-33.7); MCHC 33.7 g/dl (32.0-36.0); MEAN CELL VOLUME 82.9 fl (80-96); MEAN PLT VOLUME 8.8 fl (7.5-11.1); MONO % 10.6 % (3.8-10.2); NEUT % 36.4 % (42.8-82.8); PLATELET COUNT 268 10^3/uL (134-434); RBC 4.87 M/mm3 (3.60-5.2); RDW 14.3 % (11.6-15.6); WHITE BLOOD COUNT 5.6 K/mm3 (4.0-10.0)
[2021-08-22 02:29] LABS: CHLORIDE 107 mmol/L (98-107); SODIUM 139 mmol/L (136-145)
[2021-08-22 02:33] LABS: ANION GAP 5 MMOL/L (8-16); BLOOD UREA NITROGEN 13.3 mg/dL (7-18); CALCIUM 9.1 mg/dL (8.5-10.1); CO2 26 mmol/L (21-32); GLUCOSE,RANDOM 108 mg/dL (74-106); MAGNESIUM 2.3 mg/dL (1.8-2.4)
[2021-08-22 02:36] LABS: CREATININE 0.6 mg/dL (0.55-1.3); SGOT/AST 12 U/L (15-37); SGPT/ALT 23 U/L (13-61)
[2021-08-22 02:37] LABS: BILIRUBIN,TOTAL 0.3 mg/dL (0.2-1); TOT PROT 7.6 g/dl (6.4-8.2)
[2021-08-22 02:39] LABS: ALK PHOS 58 U/L (45-117)
[2021-08-22 03:04] LABS: ALBUMIN 3.8 g/dl (3.4-5.0)
[2021-08-22] MEDS ORDERED: MECLIZINE HCL 25 MG TABLET (FP) PO PRN (06:21)
[2021-08-22] MEDS ORDERED: ONDANSETRON 4 MG TABLET PO PRN (06:21)
[2021-08-22 08:18] LABS: EPI CELLS 8 /uL (0-25.1); HYALINE CASTS 0 /uL (0-3.1); URINE APPEARANCE CLEAR; URINE BACTERIA 32 /uL (0-1359); URINE BILIRUBIN NEGATIVE (NEGATIVE); URINE COLOR YELLOW; URINE GLUCOSE (UA) NEGATIVE (NEGATIVE); URINE KETONE NEGATIVE (NEGATIVE); URINE LEUK ESTERASE TRACE (NEGATIVE); URINE NITRITE NEGATIVE (NEGATIVE); URINE PROTEIN NEGATIVE (NEGATIVE); URINE RBC 141 /uL (0-23.9); URINE UROBILINOGEN 0.2 mg/dL (0.2-1.0); URINE WBC 24 /uL (0-25.8)
[2021-08-22 09:33] LABS: HEMATOCRIT 36.5 % (32.4-45.2); HEMOGLOBIN 12.5 GM/dL (10.7-15.3); MCH 28.3 pg (25.7-33.7); MCHC 34.2 g/dl (32.0-36.0); MEAN CELL VOLUME 82.8 fl (80-96); MEAN PLT VOLUME 8.3 fl (7.5-11.1); PLATELET COUNT 237 10^3/uL (134-434); RDW 14.4 % (11.6-15.6); WHITE BLOOD COUNT 4.8 K/mm3 (4.0-10.0)
[2021-08-22 09:41] LABS: INR 1.08 (0.83-1.09); PROTHROMBIN TIME (PATIENT) 12.6 SEC (9.7-13.0)
[2021-08-22 09:54] LABS: BLOOD UREA NITROGEN 9.5 mg/dL (7-18); CALCIUM 8.3 mg/dL (8.5-10.1)
[2021-08-22 09:56] LABS: CREATININE 0.6 mg/dL (0.55-1.3)
[2021-08-22 11:08] VITALS: BMI 26.2
[2021-08-22] MEDS: ENOXAPARIN NA (PORCINE) 40 MG/0.4 ML DISP.SYRIN SQ SCH (12:01)
[2021-08-22] MEDS: MECLIZINE HCL 25 MG TABLET (FP) PO SCH ×2 (13:32→18:21)
[2021-08-22] MEDS ORDERED: ELECTROLYTE-148 SOLN 1,000 ML IV SCH (18:15)
[2021-08-23] MEDS: MECLIZINE HCL 25 MG TABLET (FP) PO SCH ×4 (00:28→18:38)
[2021-08-23] MEDS: ENOXAPARIN NA (PORCINE) 40 MG/0.4 ML DISP.SYRIN SQ SCH (09:11)
[2021-08-23 11:11] LABS: HEMATOCRIT 37.6 % (32.4-45.2); HEMOGLOBIN 12.3 GM/dL (10.7-15.3); MCH 27.4 pg (25.7-33.7); MCHC 32.8 g/dl (32.0-36.0); MEAN CELL VOLUME 83.6 fl (80-96); PLATELET COUNT 268 10^3/uL (134-434); RDW 14.3 % (11.6-15.6); WHITE BLOOD COUNT 3.9 K/mm3 (4.0-10.0)
[2021-08-23 11:31] LABS: BLOOD UREA NITROGEN 7.1 mg/dL (7-18); CALCIUM 8.7 mg/dL (8.5-10.1)
[2021-08-23 11:35] LABS: CREATININE 0.6 mg/dL (0.55-1.3)
[2021-08-23 18:12] VITALS: BP 110/71; PULSE 72; TEMP 98
== END 2021-08-23 19:22 | disposition home or self-care (01) ==
LOC: JER 23:52 → JERBED 08-22 03:52 → J5S 08-22 09:29
PROVIDERS: ADMIT Hospitalist; ATTEND Internal Medicine
PROC: 3E023GC Introduction of Other Therapeutic Substance into Muscle, Percutaneous Approach (ICD-10-PCS; principal; 2021-08-22)
PROC: 3E033GC Introduction of Other Therapeutic Substance into Peripheral Vein, Percutaneous Approach (ICD-10-PCS; 2021-08-22)
PROC: 3E0337Z Introduction of Electrolytic and Water Balance Substance into Peripheral Vein, Percutaneous Approach (ICD-10-PCS; 2021-08-22)
DX: R42 Dizziness and giddiness (principal); E78.5 Hyperlipidemia, unspecified; Z86.16 Personal history of COVID-19; Z29.9 Encounter for prophylactic measures, unspecified
CPT/HCPCS: 36415; 70450-TC; 80048; 80053; 80061; 81003; 82465; 82550; 83036; 83735; 84443; 84484; 84703; 85025; 85027; 85610; 85730; 93005; 93010; 96365; 96372; 96375; 97116-GP; 97161-GP; 99285-25; C9803; G0378; U0003; U0005

== ENCOUNTER 2023-07-03 16:26 | Emergency (ER) | payer SELFPAY ==
[2023-07-03 16:46] VITALS: BP 133/77; PULSE 80; RESP 18; TEMP 98.2; BMI 26.4
[2023-07-03 17:52] LABS: HEMATOCRIT 38.8 % (32.4-45.2); HEMOGLOBIN 12.7 GM/dL (10.7-15.3); MCH 27.7 pg (25.7-33.7); MCHC 32.7 g/dl (32.0-36.0); MEAN CELL VOLUME 84.6 fl (80-96); RBC 4.59 M/mm3 (3.60-5.2); RDW 14.2 % (11.6-15.6); WHITE BLOOD COUNT 6.1 K/mm3 (4.0-10.0)
[2023-07-03 17:53] LABS: BASO % 0.6 % (0-2.0); EOS % 2.4 % (0-4.5); LYMPH % 44.2 % (8-40); MEAN PLT VOLUME 7.9 fl (7.5-11.1); NEUT % 43.8 % (42.8-82.8); PLATELET COUNT 326 10^3/uL (134-434)
[2023-07-03 18:38] LABS: POTASSIUM 3.7 mmol/L (3.5-5.1)
[2023-07-03 18:41] LABS: ALBUMIN 3.5 g/dl (3.4-5.0); BLOOD UREA NITROGEN 13.3 mg/dL (7-18)
[2023-07-03] MEDS ORDERED: ACETAMINOPHEN 500 MG TABLET (FP) PO ONE (18:41)
[2023-07-03] MEDS ORDERED: IBUPROFEN 400 MG TABLET (FP) PO ONE ×2 (18:42→18:47)
[2023-07-03 18:44] LABS: CREATININE 0.7 mg/dL (0.55-1.3)
[2023-07-03 18:46] LABS: BILIRUBIN,TOTAL 0.2 mg/dL (0.2-1)
[2023-07-03 19:14] LABS: PH,URINE 6.5 (5.0-8.0); URINE APPEARANCE CLEAR; URINE BILIRUBIN NEGATIVE (NEGATIVE); URINE COLOR YELLOW; URINE GLUCOSE (UA) NEGATIVE (NEGATIVE); URINE KETONE NEGATIVE (NEGATIVE); URINE LEUK ESTERASE NEGATIVE (NEGATIVE); URINE NITRITE NEGATIVE (NEGATIVE); URINE PROTEIN NEGATIVE (NEGATIVE)
== END 2023-07-03 20:40 | disposition home or self-care (01) ==
LOC: JER 16:26
DX: R07.9 Chest pain, unspecified (principal); R05.9 Cough, unspecified; R11.2 Nausea with vomiting, unspecified; R22.43 Localized swelling, mass and lump, lower limb, bilateral; Z20.822 Contact with and (suspected) exposure to COVID-19
CPT/HCPCS: 0241U-QW; 36415; 71045-TC-FY; 80053; 81003; 84484; 84703; 85025; 87086; 93005; 93010; 99285-25